=== PATIENT | male | born 1970 | race Native Hawaiian/Other Pacific Islander ===

== ENCOUNTER 2020-03-09 13:26 | Emergency (ER) | payer OTHER ==
[~2020-03-09] VITALS: Ht 175.3 cm; Wt 108.9 kg
[2020-03-09 15:02] LABS: PLATELET COUNT 447 K/uL (142-355)
[2020-03-09 15:10] LABS: POTASSIUM 2.5 mmol/L (3.6-5.2)
[2020-03-09 23:11] VITALS: BP 135/88; TEMP 98.3
== END 2020-03-09 23:12 | disposition short-term general hospital (02) ==
LOC: ED 13:26
PROVIDERS: General Practice
DX: K85.80 Other acute pancreatitis without necrosis or infection (principal)
CPT/HCPCS: 36415; 80053; 81000; 82378; 83605; 83690; 83735; 85027; 96360; 96361; 96365; 96366; 96375; 99285; J2270; J2405; J2543; J3475; J3490; Q9963

== ENCOUNTER 2022-03-21 09:44 | Emergency (ER) | payer OTHER ==
[~2022-03-21] VITALS: Ht 175.3 cm; Wt 121.6 kg
[2022-03-21 10:16] LABS: PLATELET COUNT 343 K/uL (142-355)
[2022-03-21 10:28] LABS: POTASSIUM 2.9 mmol/L (3.6-5.2)
[2022-03-21 13:14] VITALS: BP 147/80; TEMP 98.1
== END 2022-03-21 13:17 | disposition short-term general hospital (02) ==
LOC: ED 09:44
PROVIDERS: Emergency Medicine Emergency Medical Services
DX: I63.9 Cerebral infarction, unspecified (principal); R29.810 Facial weakness; R47.81 Slurred speech; E87.6 Hypokalemia; E83.42 Hypomagnesemia
CPT/HCPCS: 36415; 80053; 83735; 84484; 85027; 85610; 93005; 96365; 99284; J3475